=== PATIENT | male | born 1955 | race Caucasian/White ===

== ENCOUNTER 2016-07-11 07:26 | Day surgery (SDC) | payer OTHER ==
[2016-07-10 13:12] VITALS: BMI 29.2
[2016-07-11] MEDS ORDERED: MIDAZOLAM HCL 2 MG/2 ML SINGLE DOSE VIAL ONE ×2 (09:19→09:36)
[2016-07-11] MEDS ORDERED: ceFAZolin SODIUM 1 GM VIAL ONE (09:22)
[2016-07-11] MEDS ORDERED: GENTAMICIN SO4 80 MG/2 ML VIAL ONE (09:22)
[2016-07-11] MEDS ORDERED: GENTAMICIN 80MG PREMIX BAG IVPB ONE (09:23)
[2016-07-11] MEDS ORDERED: SODIUM CHLORIDE 0.9% P/F 10 ML VIAL IJ ONE (09:24)
[2016-07-11] MEDS ORDERED: ceFAZolin SODIUM 1 GM VIAL IVPB ONE (09:26)
[2016-07-11] MEDS ORDERED: PROPOFOL 20 ML ONE ×2 (09:47→10:44)
[2016-07-11] MEDS ORDERED: FUROSEMIDE 40 MG/4 ML INJECTABLE VIAL ONE (10:53)
--- NOTE | 2016-07-11 11:08 | OP ---
Operative Note - Note: Operative Date: 07/11/16 Pre-Operative Diagnosis: Bladder stone/BPH Operation: cysto/laser litho of bladder stone/Bipolar TURP/Bipolar TURVP Findings: bladder stone, trilobar hyperplasia Post-Operative Diagnosis: Same as Pre-op Surgeon: Tank Turner Anesthesia: Spinal Specimens Removed: stone frags, prostate chips Estimated Blood Loss (mls): 25 Drains & Tubes with Location: 24 [address] [place] Operative Report Dictated: Yes
[2016-07-11] MEDS ORDERED: ONDANSETRON 4 MG/2 ML VIAL IVPUSH PRN (11:09)
[2016-07-11] MEDS ORDERED: PROMETHAZINE HCL 25 MG/1 ML VIAL IVPUSH PRN (11:09)
[2016-07-11] MEDS ORDERED: oxyCODONE HCL 5 MG TABLET PO PRN (11:10)
[2016-07-11] MEDS ORDERED: ELECTROLYTE-148 SOLN 1,000 ML IV SCH (11:15)
[2016-07-11] MEDS ORDERED: LACTATED RINGERS SOLUTION 1,000 ML IV SCH (11:15)
--- NOTE | 2016-07-11 12:17 | OP ---
DATE OF OPERATION: 07/11/2016 PREOPERATIVE DIAGNOSES: Benign prostatic hypertrophy and bladder stone. POSTOPERATIVE DIAGNOSES: Benign prostatic hypertrophy and bladder stone. PROCEDURE: Cystoscopy, laser lithotripsy of bladder stone, bipolar transurethral vaporization of prostate and bipolar transurethral resection of the prostate. SURGEON: Get Hammond MD INDICATION: The patient is a 60-year-old male with BPH and large bladder stone, who is taken to the OR for lithotripsy of the stone and bipolar TURP and TURBP. He understood the risks of bleeding, infection, impotence, incontinence, stricture formation, potential need for additional procedures, potential injury to adjacent organs, potential persistent BPH symptoms, and recurrence of stones. After informed consent was obtained, patient taken to OR, placed supine on the operating room table. Spinal anesthetic was given. He was prepped and draped in dorsal lithotomy position. The 22 sheath cystoscope was inserted into urethra without difficulty. Anterior urethra was normal. Prostatic urethra was 5 cm and visually occlusive with an enlarged median bar. Bladder was visualized. There was a large stone noted in the bladder, approximately 2.5 to 3 cm in size. This was pulverized to fine dust and multiple fragments using the 1000 micron laser fiber at a setting of 1.5 joules and 20 Hz. All the stone fragments were removed with MiaSoléik evacuator until the entire stone burden was removed. Cystoscope was then removed and then the 26 sheath resectoscope was inserted into urethra without difficulty and into the bladder with the visual obturator. Using a combination of initially with the loop and then the rest with the rollerball, bipolar cauterization and vaporization and resection was carried out starting at the bladder neck and ending 1 cm proximal to the verumontanum to minimize incontinence until a wide open channel was created. All bleeding sites were cauterized and prostate chips were removed. At the end of the procedure, a wide open channel was created and there was no injury to the bladder, ureteral orifices, or any other structures. The resectoscope was then removed and a 24-M[place]ese Marmolejo was then placed to straight drainage. Light pink-tinged urine was retrieved. Patient was awoken from anesthesia and transferred to recovery room in stable condition. There were no complications. Estimated blood loss was 25 mL. GET HAMMOND M.D. [id number]
[2016-07-11 12:50] VITALS: TEMP 97.5
[2016-07-11 14:52] VITALS: BP 121/79; PULSE 95
--- NOTE | 2016-07-12 14:01 | PATH ---
Surgical Pathology Report Patient Name: JEFF YE [facility]. Rec. #: [id number] /Age/Gender: 1955 (Age: 60) / M Account: [id number] Location: [facility] SURGICAL Taken: 07/11/2016 Received: 07/11/2016 Reported: 07/12/2016 Physicians: Tank Turner M.D. Specimen(s) Received A: BLADDER STONE B: PROSTATE BIOPSY Clinical History Bladder stone, BPH Final Diagnosis A. BLADDER STONE, EXTRACTION: CALCULUS (GROSS EXAM). SPECIMEN SENT FOR CHEMICAL ANALYSIS. B. PROSTATE, TUR: BENIGN PROSTATE TISSUE GLANDULAR AND STROMAL HYPERPLASIA. Electronically Signed Dylan Flanagan M.D. Gross Description A. Received fresh labeled "bladder stone" is a 2.8 x 2.0 x 0.3 cm aggregate of miller-yellow, irregular to fragmented calculi. The specimen is sent for chemical analysis. B. Received in formalin labeled "prostate tissue" is a 1 g, 2.5 x 2.0 x 0.3 cm aggregate of miller-pink, irregular, firm to rubbery portions of tissue, consistent with prostate tissue. The specimen is entirely submitted in one cassette. /07/11/2016 saudi07/11/2016
[2016-07-22 14:13] LABS: COLOR Orange (.); URIC ACID 100 % (.)
== END 2016-07-11 15:02 | disposition home or self-care (01) ==
LOC: JASU-SURG 07:26
PROVIDERS: ATTEND Urology
PROC: 0TCB8ZZ Extirpation of Matter from Bladder, Via Natural or Artificial Opening Endoscopic (ICD-10-PCS; principal; 2016-07-11 09:00)
PROC: 0VB08ZZ Excision of Prostate, Via Natural or Artificial Opening Endoscopic (ICD-10-PCS; 2016-07-11 09:00)
DX: N21.0 Calculus in bladder (principal); N40.0 Benign prostatic hyperplasia without lower urinary tract symptoms
CPT/HCPCS: 36415; 82360; 88300-TC; 88305-TC; 94760